=== PATIENT | male | born 1950 | race Caucasian/White ===

== ENCOUNTER → 2020-12-30 | Outpatient (CLI) | payer MEDICARE ==
[2020-12-30 15:34] LABS: African American GFR (CKD) 101.4 (60.0-200.0); Anion Gap 6.9 mmol/L (4.00-12.00); BUN/Creat Ratio 17.78 Ratio (12.00-20.00); Calcium 8.8 mg/dL (8.7-10.3); Carbon Dioxide 24.1 mmol/L (21.6-31.8); Non-African American GFR(CKD) 87.5 (60.0-200.0); Potassium 4.2 mmol/L (3.5-5.5)
== END | disposition home or self-care (01) ==
LOC: LABWHC1 07:58
PROVIDERS: ATTEND Urology
DX: C68.9 Malignant neoplasm of urinary organ, unspecified (principal)
CPT/HCPCS: 36415; 80048

== ENCOUNTER → 2021-01-30 | Outpatient (CLI) | payer MEDICARE ==
[2021-01-30 08:05] LABS: INR 0.9 (<1.2); Partial Thromboplastin Time 26.1 sec (22.0-30.0); Prothrombin Time 10.1 sec (9.0-12.0)
[2021-01-30 11:26] LABS: HCT 47.5 % (39.6-50.0); HGB 16.1 g/dL (13.0-17.0); MCH 31.2 pg (27.0-32.0); MCHC 33.9 g/dL (32.0-37.0); MCV 92.1 fL (80.0-97.0); Mean Platelet Volume 11.2 fL (9.5-12.2); Platelet Count 250 X 10*3/uL (140-440); RBC 5.16 X 10*6/uL (4.40-5.60); RDW 13.1 % (11.5-14.5); WBC 5.76 X 10*3/uL (4.50-10.00)
[2021-01-31 19:38] LABS: African American GFR (CKD) 86.1 (60.0-200.0); Anion Gap 19.2 mmol/L (4.00-12.00); BUN/Creat Ratio 16.89 Ratio (12.00-20.00); Blood Urea Nitrogen 17.4 mg/dL (9.0-27.0); Calcium 9.8 mg/dL (8.7-10.3); Carbon Dioxide 17.5 mmol/L (21.6-31.8); Non-African American GFR(CKD) 74.3 (60.0-200.0); Potassium 4.8 mmol/L (3.5-5.5)
== END | disposition home or self-care (01) ==
LOC: LABWHC1 07:18
PROVIDERS: ATTEND Urology
DX: C68.9 Malignant neoplasm of urinary organ, unspecified (principal); R94.31 Abnormal electrocardiogram [ECG] [EKG]; R00.1 Bradycardia, unspecified
CPT/HCPCS: 36415; 80048; 85027; 85610; 85730; 87086; 93005